=== PATIENT | male | born 1985 | race African-American/Black ===

== ENCOUNTER 2018-12-08 18:59 | Emergency (ER) | payer SELFPAY ==
--- NOTE | 2018-12-08 19:30 | EDM.PDOC ---
ED HPI GENERAL MEDICAL PROBLEM - General Chief Complaint: Skin Complaint Stated Complaint: INFECTED FINGER Time Seen by Provider: 12/08/18 19:15 Source of Information: Reports: Patient, RN Notes Reviewed - History of Present Illness INITIAL COMMENTS - FREE TEXT/NARRATIVE: 33 year old male cut his R index finger on some broken glass 2 or 3 days ago, started getting infected yesterday, worse today, now draining pus dorsal PIP of R index finger. localized swelling. It did not feel like there was any retained glass in finger. He believes he did have a MRSA infection once in the past a few yrs ago. - Related Data Allergies Allergy/AdvReac Type Severity Reaction Status Date / Time No Known Allergies Allergy Verified 12/08/18 19:13 Home Meds: Home Meds . [No Known Home Meds] 12/08/18 [History] ED ROS GENERAL - Review of Systems Review Of Systems: See Below Constitutional: Denies: Fever, Chills HEENT: Reports: No Symptoms Respiratory: Denies: Shortness of Breath Cardiovascular: Denies: Chest Pain GI/Abdominal: Denies: Nausea, Vomiting Musculoskeletal: Reports: Joint Pain (R index finger) Skin: Denies: Rash ED EXAM, SKIN/RASH Exam: See Below General Appearance: Alert Head: Atraumatic. No: Facial Swelling Neck: Supple Respiratory/Chest: No Respiratory Distress Extremities: Redness (There is inflammation, swelling and a small open wound dorsal expect proximal PIP of right index finger with small amount of pus present, ) Skin: Warm, Dry Course - Vital Signs Last Recorded V/S: Last Vital Signs Temp 98.2 F 12/08/18 19:11 Pulse 82 12/08/18 19:11 Resp 18 12/08/18 19:11 BP 114/78 12/08/18 19:11 Pulse Ox 98 12/08/18 19:11 Departure - Departure Time of Disposition: 19:25 Disposition: Home, Self-Care 01 Condition: Fair Clinical Impression: Finger infection - Discharge Information Referrals: PCP,None [Primary Care Provider] - Forms: ED Department Discharge Additional Instructions: Soak finger in warm soapy water every 1 to 2 hours when not working or sleeping , keep protected when at work. Start antibiotics tonight, doxycycline 200 mg twice daily for 3 days and than 100 mg twice daily for the following 7 days. Bactrim 2 tablets twice daily for 3 days and than 1 tablet twice daily for the next 7 days. Have rechecked clinic if not much better within 3 to 4 days as expected. Return to ED as needed.
== END 2018-12-08 19:40 | disposition home or self-care (01) ==
LOC: JD.ED 18:59
DX: L08.9 Local infection of the skin and subcutaneous tissue, unspecified (principal)
CPT/HCPCS: 99283

== ENCOUNTER 2018-12-25 18:21 | Emergency (ER) | payer SELFPAY ==
[2018-12-25] MEDS ORDERED: Amoxicillin/Clavulanate K 875-125 MG Tab PO ONE (19:04)
--- NOTE | 2018-12-25 19:18 | EDM.PDOC ---
ED HPI GENERAL MEDICAL PROBLEM - General Chief Complaint: Upper Extremity Injury/Pain Stated Complaint: FINGER PAIN Time Seen by Provider: 12/25/18 18:35 Source of Information: Reports: Patient, RN Notes Reviewed History Limitations: Reports: No Limitations - History of Present Illness INITIAL COMMENTS - FREE TEXT/NARRATIVE: Patient is a 33 year old male who presents to the ED for the evaluation of continued finger pain. He was seen in this ED on 12/08/18 and was sent home on Bactrim and doxycycline, he states that he took the antibiotics as prescribed until they were gone. He has been soaking his finger as directed and bandaging it while at work. On the , it was told to the provider on duty that he got injured on a piece of glass. Tonight the patient states that he got cut by another human's tooth. He is UTD on his tetanus booster, his last one was 4 years ago. He has not taken anything OTC for pain relief. He is still having pain and swelling to the right pointer finger over the PIP joint. Right Finger-Index Pain Score (Numeric/FACES): 9 - Related Data Allergies Allergy/AdvReac Type Severity Reaction Status Date / Time No Known Allergies Allergy Verified 12/25/18 18:36 Home Meds: Home Meds Amoxicillin/Clavulanate K [Augmentin 875-125 MG] 1 tab PO BID #13 tablet [Rx] Past Medical History - Past Health History Medical/Surgical History: Denies Medical/Surgical History Social & Family History - Tobacco Use Smoking Status *Q: Unknown Ever Smoked - Caffeine Use Caffeine Use: Reports: Coffee, Soda ED ROS GENERAL - Review of Systems Review Of Systems: See Below Constitutional: Reports: Fever, Chills HEENT: Reports: No Symptoms Respiratory: Reports: No Symptoms Cardiovascular: Reports: No Symptoms Endocrine: Reports: No Symptoms GI/Abdominal: Reports: No Symptoms : Reports: No Symptoms Musculoskeletal: Reports: Joint Pain (right index finger pain) Skin: Reports: Wound (over PIP of right pointer finger) Neurological: Reports: No Symptoms Psychiatric: Reports: No Symptoms Hematologic/Lymphatic: Reports: No Symptoms Immunologic: Reports: No Symptoms ED EXAM, SKIN/RASH Exam: See Below Text/Narrative:: exam limited to right upper extremity. Exam Limited By: No Limitations General Appearance: Alert, WD/WN, No Apparent Distress Respiratory/Chest: No Respiratory Distress, Lungs Clear, Normal Breath Sounds, No Accessory Muscle Use, Chest Non-Tender Cardiovascular: Normal Peripheral Pulses, Regular Rate, Rhythm, No Murmur Neurological: Alert, Oriented, Normal Cognition, Normal Gait, No Motor/Sensory Deficits Psychiatric: Normal Affect, Normal Mood Skin: Warm, Dry, Normal Color, No Rash, Wound/Incision (open wound over the PIP joint of the right index finger, this is swollen, no redness noted, no drainage noted.) Course - Vital Signs Last Recorded V/S: Last Vital Signs Temp 98.4 F 12/25/18 18:32 Pulse 96 12/25/18 18:32 Resp 18 12/25/18 18:32 BP 140/92 H 12/25/18 18:32 Pulse Ox 100 12/25/18 18:32 - Orders/Labs/Meds Meds: Medications Discontinued Medications Generic Name Dose Route Start Last Admin Trade Name Freq PRN Reason Stop Dose Admin Amoxicillin/Clavulanate Potassium 1 tab 12/25/18 19:04 12/25/18 19:11 Augmentin 875 Mg/125 Mg PO 12/25/18 19:05 1 tab ONETIME ONE Administration - Re-Assessments/Exams Free Text/Narrative Re-Assessment/Exam: 12/25/18 19:34 Pt presents to the ED for the evaluation of continuing finger pain. As his story has changed from the last visit, I have started him on Augmentin to see if this doesn't clear up the infection. I have advised him to continue soaking and bandaging as he has been previously directed as well. His antibiotic has been sent to [facility] on [address], as per his request. He has been advised to take OTC tylenol/ibuprofen for pain relief. Departure - Departure Time of Disposition: 19:21 Disposition: Home, Self-Care 01 Condition: Fair Clinical Impression: Pain of finger joint, Finger infection - Discharge Information *PRESCRIPTION DRUG MONITORING PROGRAM REVIEWED*: No *COPY OF PRESCRIPTION DRUG MONITORING REPORT IN PATIENT JENAE: No Prescriptions: Amoxicillin/Clavulanate K [Augmentin 875-125 MG] 1 tab PO BID #13 tablet Instructions: Cellulitis, Adult, [id number] Referrals: PCP,Not In Area [Primary Care Provider] - Forms: ED Department Discharge Additional Instructions: You have been seen in the ED for the evaluation of your right finger pain. You have prescribed an antibiotic that covers typical bacteria that live in human mouths. Please take the Augmentin TWICE daily for 7 days or until gone. Follow all previous directions regarding soaking and bandaging for work. You may use ibuprofen/tylenol as needed for pain relief. Please return to the ED if your symptoms change or worsen.
== END 2018-12-25 19:32 | disposition home or self-care (01) ==
LOC: JD.ED 18:21
DX: S61.200A Unspecified open wound of right index finger without damage to nail, initial encounter (principal); Y28.8XXA Contact with other sharp object, undetermined intent, initial encounter
CPT/HCPCS: 99283; A9270

== ENCOUNTER 2019-01-13 22:36 | Emergency (ER) | payer SELFPAY | END 2019-01-13 23:59 | disposition left against medical advice (07) | LOC: JD.ED 22:36 | DX: Z53.21 Procedure and treatment not carried out due to patient leaving prior to being seen by health care provider (principal) ==

== ENCOUNTER 2019-08-13 12:02 | Emergency (ER) | payer SELFPAY ==
--- NOTE | 2019-08-13 12:48 | EDM.PDOC ---
ED HPI GENERAL MEDICAL PROBLEM - General Chief Complaint: Head Injury Stated Complaint: MEDICAL CLEARANCE TO GO BACK TO WORK Time Seen by Provider: 08/13/19 12:24 Source of Information: Reports: Patient History Limitations: Reports: No Limitations - History of Present Illness INITIAL COMMENTS - FREE TEXT/NARRATIVE: The patient presents with a head injury. He was at work moving furniture and he may have slipped and he hit his head on a piece of furniture. He said it hit him in the right upper forehead. He had no LOC. He had a slight headache but that is gone now after tylenol. He has no numbness or weakness. He has no blurred vision or double vision. He has no nausea or vomiting. Onset: Sudden Duration: Minutes: Location: Reports: Head Quality: Reports: Ache Severity: Mild (Gone now) Improves with: Reports: None Worsens with: Reports: None Associated Symptoms: Reports: Headaches. Denies: Chest Pain, Cough, Fever/ Chills, Nausea/Vomiting, Shortness of Breath Treatments SETUP OPERATOR: Reports: Acetaminophen Headache Pain Score (Numeric/FACES): 4 - Related Data Allergies Allergy/AdvReac Type Severity Reaction Status Date / Time No Known Allergies Allergy Verified 08/13/19 12:29 Home Meds: Home Meds . [No Known Home Meds] 01/13/19 [History] Past Medical History - Past Health History Medical/Surgical History: Denies Medical/Surgical History Social & Family History - Family History Family Medical History: Noncontributory - Tobacco Use Smoking Status *Q: Current Some Day Smoker Years of Tobacco use: 16 Packs/Tins Daily: 0.5 - Caffeine Use Caffeine Use: Reports: Tea - Recreational Drug Use Recreational Drug Use: Yes Recreational Drug Type: Reports: Marijuana/Hashish ED ROS GENERAL - Review of Systems Review Of Systems: See Below Constitutional: Reports: No Symptoms HEENT: Reports: No Symptoms Respiratory: Reports: No Symptoms Cardiovascular: Reports: No Symptoms Endocrine: Reports: No Symptoms GI/Abdominal: Reports: No Symptoms : Reports: No Symptoms Musculoskeletal: Reports: No Symptoms Skin: Reports: No Symptoms Neurological: Reports: Headache ED EXAM, HEAD INJURY - Physical Exam Exam: See Below Exam Limited By: No Limitations General Appearance: Alert, No Apparent Distress Head: Normocephalic, Other (Mild pain upon palpation to the right upper forehead ) Ears: Normal External Exam Nose: Normal Inspection Neck: Non-Tender, Normal Alignment, Normal Inspection Respiratory: No Respiratory Distress, Lungs Clear, Normal Breath Sounds Cardiovascular: Regular Rate, Rhythm, No Edema, No Murmur GI/Abdominal Exam: Soft, Non-Tender, No Organomegaly, No Mass Extremities: Normal Inspection Neurologic: Alert, Oriented x 3 Course - Vital Signs Last Recorded V/S: Last Vital Signs Temp 97.9 F 08/13/19 12:23 Pulse 73 08/13/19 12:23 Resp 16 08/13/19 12:23 BP 136/49 L 08/13/19 12:23 Pulse Ox 100 08/13/19 12:23 Departure - Departure Time of Disposition: 12:50 Disposition: Home, Self-Care 01 Condition: Good Clinical Impression: Fall Qualifiers: Encounter type: initial encounter Qualified Code(s): W19.XXXA - Unspecified fall, initial encounter Head injury Qualifiers: Encounter type: initial encounter Qualified Code(s): S09.90XA - Unspecified injury of head, initial encounter - Discharge Information *PRESCRIPTION DRUG MONITORING PROGRAM REVIEWED*: No *COPY OF PRESCRIPTION DRUG MONITORING REPORT IN PATIENT JENAE: No Referrals: PCP,None [Primary Care Provider] - Forms: ED Department Discharge, ED Return to Work/School Form Additional Instructions: Take tylenol or motrin for any pain. Please return if you are worse.
== END 2019-08-13 13:08 | disposition home or self-care (01) ==
LOC: JD.ED 12:02
DX: S09.90XA Unspecified injury of head, initial encounter (principal); F17.210 Nicotine dependence, cigarettes, uncomplicated; W01.10XA Fall on same level from slipping, tripping and stumbling with subsequent striking against unspecified object, initial encounter; Y99.0 Civilian activity done for income or pay
CPT/HCPCS: 99282; 99283